=== PATIENT | female | born 1975 | race Caucasian/White ===

== ENCOUNTER 2022-05-24 14:51 | Emergency (ER) | payer MEDICAID, OTHER ==
[~2022-05-24] VITALS: Ht 170.2 cm; Wt 65.3 kg
[2022-05-24] MEDS ORDERED: ONDA4TAB11 PO (16:12)
[2022-05-24] MEDS ORDERED: AZIT250T PO (16:12)
--- NOTE | 2022-05-24 16:30 | NUR ---
COVID swab collected. Dr Poon said to discharge this patient home and that he will call the patient if the COVID test is positive. Hence, patient was discharged to home in stable condition. Written and verbal after care instructions given to patient and patient's son who works in the medical field. Patient and family verbalized understanding and compliance of instructions. Stressed follow up with primary doctor or return to ER for worsening s/s.
[2022-05-24 16:45] VITALS: BP 133/80
== END 2022-05-24 16:29 | disposition home or self-care (01) ==
LOC: ER 14:51
DX: K52.9 Noninfective gastroenteritis and colitis, unspecified (principal); R07.9 Chest pain, unspecified; Z20.822 Contact with and (suspected) exposure to COVID-19; R00.1 Bradycardia, unspecified; R03.0 Elevated blood-pressure reading, without diagnosis of hypertension
CPT/HCPCS: 93005; A4663

== ENCOUNTER 2022-07-27 10:38 | Emergency (ER) | payer OTHER ==
[~2022-07-27] VITALS: Ht 167.6 cm; Wt 65.8 kg
[~2022-07-27 10:38] MED LIST: AZIT250T PO; ONDA4TAB11 PO
--- NOTE | 2022-07-27 10:52 | NUR ---
[email or web address], medical screening exam in progress
[2022-07-27] MEDS ORDERED: SERT25TA PO (10:57)
[2022-07-27] MEDS ORDERED: METO100T14 PO (10:57)
[2022-07-27] MEDS ORDERED: IV NORMAL SALINE 1000 ML BAG IV ONE (11:00)
[2022-07-27] MEDS ORDERED: ACETAMINOPHEN ES 500 MG TABLET PO ONE (11:00)
[2022-07-27] MEDS ORDERED: ACETAMINOPHEN ES 500 MG TABLET ONE (11:17)
[2022-07-27 11:45] LABS: HEMATOCRIT 40.5 % (31.2-41.9); MEAN CORPUSCULAR VOLUME 91.5 fL (75.5-95.3); PLATELET COUNT (AUTO) 293 K/uL (179-408)
[2022-07-27 11:54] LABS: CARBON DIOXIDE 28 mmol/L (21-32); CHLORIDE 101 mmol/L (98-107); CREATININE 0.6 mg/dL (0.6-1.3); GLUCOSE 102 mg/dL (74-106); UREA NITROGEN, BLOOD 16 mg/dL (7-18)
[2022-07-27 11:56] LABS: NEUTROPHILS % (MANUAL) 0 % (42-75)
[2022-07-27 12:03] LABS: ALANINE AMINOTRANSFERASE 42 U/L (14-59); ALKALINE PHOSPHATASE 83 U/L (50-136); ASPARTATE AMINOTRANSFERASE 20 U/L (15-37); BILIRUBIN,DIRECT 0.1 mg/dL (0.0-0.2); BILIRUBIN,TOTAL 0.4 mg/dL (0.2-1.0); TOTAL PROTEIN, SERUM 7.5 g/dL (6.4-8.2)
--- NOTE | 2022-07-27 13:43 | NUR ---
IV removed. Catheter intact and site benign. Pressure and 4x4 gauze applied to site. No bleeding noted. Patient discharged to home in stable condition with brisk steady gait. Written and verbal after care instructions given to patient and her son who is a clock and watch hands dipper. Patient and family verbalized understanding and compliance of instructions. Stressed follow up with primary doctor and retaining room cutter or return to ER for worsening s/s.
== END 2022-07-27 13:44 | disposition home or self-care (01) ==
LOC: ER 10:38
DX: B34.9 Viral infection, unspecified (principal); R07.9 Chest pain, unspecified; Z20.822 Contact with and (suspected) exposure to COVID-19; I10 Essential (primary) hypertension; F32.A Depression, unspecified; F41.9 Anxiety disorder, unspecified
CPT/HCPCS: 99285; 96360; 71045; 87426; 80076; 80048; 85025; 87400; 84484; 36415; 93005; 85007; J7040; 70030-TC; A4663; A9150

== ENCOUNTER 2022-10-05 20:58 | Emergency (ER) | payer OTHER ==
[~2022-10-05] VITALS: Ht 162.6 cm; Wt 65.8 kg
[~2022-10-05 20:58] MED LIST changes: -AZIT250T PO; +METO100T14 PO; -ONDA4TAB11 PO; +SERT25TA PO
--- NOTE | 2022-10-05 21:15 | NUR ---
Dr. VILLARREAL at bedside. MSE in progress.
[2022-10-05] MEDS ORDERED: KETOROLAC TROMETHAMINE 15 MG INJ ONE (21:25)
[2022-10-05] MEDS ORDERED: KETOROLAC TROMETHAMINE 15 MG INJ IM ONE (21:30)
[2022-10-05] MEDS ORDERED: KETOROLAC TROMETHAMINE 15 MG INJ IVP ONE (21:30)
--- NOTE | 2022-10-05 21:38 | NUR ---
Urine sample sent to lab.
[2022-10-05 21:42] LABS: *BILIRUBIN,URIN NEGATIVE (NEGATIVE); *BLOOD, URINE 3+ (NEGATIVE); *CLARITY,URINE CLEAR (CLEAR); *COLOR,URINE RED (YELLOW); *KETONES,URINE NEGATIVE (NEGATIVE); *UROBILINOGEN,URINE 0.2 E.U./dl (NORMAL); LEUKOCYTE ESTERASE ,URINE TRACE (NEGATIVE); NITRITE, URINE NEGATIVE (NEGATIVE); UGLUCOSE NEGATIVE (NEGATIVE)
[2022-10-05 21:44] LABS: *URINE HCG, QUAL NEG (NEGATIVE)
[2022-10-05 22:20] LABS: MEAN CORPUSCULAR VOLUME 91.8 fL (75.5-95.3); PLATELET COUNT (AUTO) 332 K/uL (179-408)
[2022-10-05 22:38] LABS: BILIRUBIN,TOTAL 0.2 mg/dL (0.2-1.0); CREATININE 0.9 mg/dL (0.6-1.3)
[2022-10-05 22:40] LABS: BACTERIA,URINE FEW /HPF (NONE SEEN); RBC,URINE TNTC /HPF (0-3); SQUAMOUS EPITHELIAL CELL,UR FEW /HPF (NONE SEEN); WBC,URINE 20-50 /HPF (0-3)
--- NOTE | 2022-10-05 22:50 | NUR ---
Patient taken down for CT.
[2022-10-05] MEDS ORDERED: CEphaleXIN 500 MG CAPSULE PO ONE (23:00)
[2022-10-05] MEDS ORDERED: CEPH500C2 PO (23:02)
[2022-10-05] MEDS ORDERED: CEphaleXIN 500 MG CAPSULE ONE (23:02)
--- NOTE | 2022-10-05 23:05 | NUR ---
Patient back from CT scan.
--- NOTE | 2022-10-05 23:54 | NUR ---
Patient discharged to home in stable condition. A/O x 4. NAD noted. Ambulatory with a steady gait. Written and verbal after care instructions given. Patient verbalizes understanding of instructions. Stressed follow up or return to ER for worsening s/s.
[2022-10-05 23:55] VITALS: BP 128/84
== END 2022-10-05 23:56 | disposition home or self-care (01) ==
LOC: ER 20:58
DX: N39.0 Urinary tract infection, site not specified (principal); R31.9 Hematuria, unspecified; R10.2 Pelvic and perineal pain; D25.9 Leiomyoma of uterus, unspecified; Z87.440 Personal history of urinary (tract) infections; F41.9 Anxiety disorder, unspecified
CPT/HCPCS: 99285; 74176; 80053; 81001; 84703; 85025; 36415; 96372; 87040; J1885; A4663

== ENCOUNTER 2023-06-14 11:17 | Emergency (ER) | payer OTHER ==
[~2023-06-14] VITALS: Ht 162.6 cm; Wt 65.8 kg
[~2023-06-14 11:17] MED LIST changes: +CEPH500C2 PO
[2023-06-14] MEDS ORDERED: METOCLOPRAMIDE HCL 10 MG/2 ML VIAL IV ONE (12:00)
[2023-06-14] MEDS ORDERED: SUMATRIPTAN SUCCINATE 6 MG/0.5 ML VIAL SQ ONE ×2 (12:00→12:37)
[2023-06-14] MEDS ORDERED: diphenhydrAMINE 50 MG/1 ML VIAL IV ONE (12:00)
[2023-06-14] MEDS ORDERED: diphenhydrAMINE 50 MG/1 ML VIAL ONE (12:36)
[2023-06-14] MEDS ORDERED: METOCLOPRAMIDE HCL 10 MG/2 ML VIAL ONE (12:37)
[2023-06-14 13:17] VITALS: O2SAT 98
[2023-06-14] MEDS ORDERED: METO5TAB87 PO (13:45)
[2023-06-14 14:06] VITALS: BP 124/66
== END 2023-06-14 14:10 | disposition home or self-care (01) ==
LOC: ER 11:17
DX: G43.119 Migraine with aura, intractable, without status migrainosus (principal); Z79.899 Other long term (current) drug therapy
CPT/HCPCS: 99283; 96374; 96372; J1200; J2765; J3030; A4606; A4663

== ENCOUNTER 2024-08-29 21:58 | Emergency (ER) | payer OTHER ==
[~2024-08-29] VITALS: Ht 160 cm; Wt 68.0 kg
[~2024-08-29 21:58] MED LIST changes: +METO5TAB87 PO
[2024-08-29] MEDS ORDERED: PRED20TA PO (22:52)
[2024-08-29] MEDS ORDERED: CYCL5TAB PO (22:52)
[2024-08-29 23:08] LABS: BASOPHILS # (AUTO) 0.1 K/UL (0.0-0.2); EOSINOPHILS # (AUTO) 0.1 K/uL (0.0-0.7); EOSINOPHILS % (AUTO) 2.4 % (0.0-7.0); HEMATOCRIT 38.1 % (31.2-41.9); HEMOGLOBIN 13.1 g/dL (10.9-14.3); LYMPHOCYTES # (AUTO) 2.4 K/uL (0.8-4.8); LYMPHOCYTES % (AUTO) 39.7 % (20.5-51.5); MEAN CORPUSCULAR HEMOGLOBIN 30.9 uug (24.7-32.8); MEAN CORPUSCULAR HGB CONC 34 g/dL (32.3-35.6); MEAN CORPUSCULAR VOLUME 90.1 fL (75.5-95.3); MONOCYTES # (AUTO) 0.7 K/uL (0.1-1.30); MONOCYTES % (AUTO) 11.6 % (0.0-11.0); NEUTROPHILS # (AUTO) 2.7 K/uL (1.8-8.9); NEUTROPHILS % (AUTO) 45.3 % (38.5-71.5); PLATELET COUNT (AUTO) 263 K/uL (179-408); RED BLOOD CELL COUNT(AUTO) 4.23 MIL/uL (3.63-4.92); RED CELL DISTRIBUTION WIDTH 12.6 % (12.3-17.7)
[2024-08-29 23:09] LABS: DIFFERENTIAL COMMENT 1
[2024-08-29 23:23] LABS: CALCIUM 8.5 mg/dL (8.5-10.1); CREATININE 0.7 mg/dL (0.6-1.3); POTASSIUM 3.7 mmol/L (3.5-5.1)
[2024-08-29 23:28] LABS: ALBUMIN 3.3 g/dL (3.4-5.0); BILIRUBIN,TOTAL 0.3 mg/dL (0.2-1.0); TOTAL PROTEIN, SERUM 7.9 g/dL (6.4-8.2)
[2024-08-29 23:43] VITALS: BP 145/90; O2SAT 98
== END 2024-08-29 23:44 | disposition home or self-care (01) ==
LOC: ER 21:58
DX: S16.1XXA Strain of muscle, fascia and tendon at neck level, initial encounter (principal); M25.522 Pain in left elbow; F32.A Depression, unspecified; F41.9 Anxiety disorder, unspecified; I10 Essential (primary) hypertension; R94.31 Abnormal electrocardiogram [ECG] [EKG]; Z79.52 Long term (current) use of systemic steroids; Z79.899 Other long term (current) drug therapy; X58.XXXA Exposure to other specified factors, initial encounter; Y93.89 Activity, other specified; Y92.89 Other specified places as the place of occurrence of the external cause; Y99.8 Other external cause status
CPT/HCPCS: 36415; 84484; 85025; A4606; A4663

== ENCOUNTER 2025-04-19 15:23 | Emergency (ER) | payer OTHER ==
[~2025-04-19] VITALS: Ht 160 cm; Wt 67.1 kg
[2025-04-19 15:23] VITALS: BP 153/83; O2SAT 95
[~2025-04-19 15:23] MED LIST changes: +CYCL5TAB PO; +PRED20TA PO
[2025-04-19] MEDS ORDERED: IV NORMAL SALINE 250 ML IV ONE (15:35)
[2025-04-19] MEDS ORDERED: SWABABLE VALVE TRANSFER SET EA MC ONE (15:36)
[2025-04-19] MEDS ORDERED: IOHEXOL 350 100 ML INFUS..BTL ONE (15:36)
[2025-04-19 15:42] LABS: PLATELET COUNT (AUTO) 285 K/uL (179-408); RED BLOOD CELL COUNT(AUTO) 4.71 MIL/uL (3.63-4.92); RED CELL DISTRIBUTION WIDTH 12.8 % (12.3-17.7); WHITE BLOOD COUNT (AUTO) 7.4 K/uL (3.8-11.8)
[2025-04-19 15:57] LABS: CREATININE 0.6 mg/dL (0.6-1.3); SODIUM SERUM 139.0 mmol/L (136-145); UREA NITROGEN, BLOOD 25.0 mg/dL (7-18)
[2025-04-19 15:59] LABS: ETHANOL < 3 MG/DL (0-10)
[2025-04-19] MEDS ORDERED: DEXAMETHASONE SOD PHOSPHATE 4 MG INJ ONE (16:39)
[2025-04-19] MEDS ORDERED: VALPROATE SODIUM 500 MG/5 ML VIAL IV ONE (16:40)
[2025-04-19] MEDS ORDERED: diphenhydrAMINE 50 MG/1 ML VIAL ONE (16:40)
[2025-04-19] MEDS ORDERED: METOCLOPRAMIDE HCL 10 MG/2 ML VIAL ONE (16:40)
[2025-04-19] MEDS ORDERED: KETOROLAC TROMETHAMINE 15 MG INJ ONE (16:40)
[2025-04-19] MEDS: diphenhydrAMINE 50 MG/1 ML VIAL IV ONE (17:10)
[2025-04-19] MEDS: IV NORMAL SALINE 1000 ML BAG IV ONE (17:10)
[2025-04-19] MEDS: VALPROATE SODIUM 500 MG/5 ML VIAL IV ONE (17:10)
[2025-04-19] MEDS: DEXAMETHASONE SOD PHOSPHATE 4 MG INJ IV ONE (17:10)
[2025-04-19] MEDS: METOCLOPRAMIDE HCL 10 MG/2 ML VIAL IV ONE (17:11)
[2025-04-19] MEDS: KETOROLAC TROMETHAMINE 15 MG INJ IVP ONE (17:11)
[2025-04-19 17:15] LABS: *BILIRUBIN,URIN NEGATIVE (NEGATIVE); *BLOOD, URINE 1+ (NEGATIVE); *CLARITY,URINE CLEAR (CLEAR); *COLOR,URINE YELLOW (YELLOW); *KETONES,URINE NEGATIVE (NEGATIVE); *PROTEIN,URINE NEGATIVE (NEGATIVE); *UROBILINOGEN,URINE 0.2 E.U./dl (NORMAL); LEUKOCYTE ESTERASE ,URINE NEGATIVE (NEGATIVE); NITRITE, URINE NEGATIVE (NEGATIVE); UGLUCOSE NEGATIVE (NEGATIVE)
[2025-04-19 17:16] LABS: *URINE HCG, QUAL NEGATIVE (NEGATIVE)
[2025-04-19] MEDS ORDERED: MAGNESIUM SULFATE/D5W 100 ML ONE (17:20)
[2025-04-19 17:22] LABS: *AMPHETAMINE, URINE NEGATIVE (NEGATIVE); *BARBITURATE, URINE NEGATIVE (NEGATIVE); *BENZODIAZEPINE, URINE NEGATIVE (NEGATIVE); *CANNABINOID, URINE NEGATIVE (NEGATIVE); *COCCAINE, URINE NEGATIVE (NEGATIVE); *OPIATE, URINE NEGATIVE (NEGATIVE); *PHENCYCLIDINE SCREEN,URINE NEGATIVE (NEGATIVE); FENTANYL, URINE NEGATIVE (NEGATIVE)
[2025-04-19] MEDS: MAGNESIUM SULFATE/D5W 100 ML IV SCH (17:26)
== END 2025-04-19 17:45 | disposition left against medical advice (07) ==
LOC: ER 15:23
DX: R53.1 Weakness (principal); R51.9 Headache, unspecified; F41.9 Anxiety disorder, unspecified; F32.A Depression, unspecified; I10 Essential (primary) hypertension; Z53.29 Procedure and treatment not carried out because of patient's decision for other reasons; Z79.52 Long term (current) use of systemic steroids; Z79.899 Other long term (current) drug therapy
CPT/HCPCS: 80048; 81001; 84703; 83735; 84100; 84443; 85025; 85730; 84484; 36415; 71045; 70450; 70496; 70498; 93005; 99291; 96374; 96375; 80320; 80307; J1100; J1200; J1885; J3475; J2765; Q9967; J3490; J7040; A4606; A4663; G0480